=== PATIENT | female | born 1995 | race Caucasian/White ===

== ENCOUNTER 2018-09-26 22:28 | Emergency (ER) | payer MEDICAID ==
[~2018-09-26] VITALS: Ht 177.8 cm; Wt 93.0 kg
[2018-09-26 22:34] VITALS: BP 129/70
[2018-09-26] MEDS ORDERED: MECLIZINE 25 MG TAB PO ONE (23:20)
[2018-09-27] MEDS ORDERED: ONDANSETRON 4 MG ODT PO ONE (01:05)
[2018-09-27 01:27] VITALS: BP 136/78
== END 2018-09-27 01:29 | disposition home or self-care (01) ==
LOC: MED 22:28
DX: S06.0X0A Concussion without loss of consciousness, initial encounter (principal); G43.909 Migraine, unspecified, not intractable, without status migrainosus; W18.30XA Fall on same level, unspecified, initial encounter; Y93.23 Activity, snow (alpine) (downhill) skiing, snowboarding, sledding, tobogganing and snow tubing; Y92.89 Other specified places as the place of occurrence of the external cause; Y99.8 Other external cause status
CPT/HCPCS: 70450; 99284; J8597; Q0162